=== PATIENT | male | born 1965 | race Caucasian/White ===

== ENCOUNTER 2020-01-31 07:46 | Outpatient (CLI) | payer MEDICARE, MEDICAID, OTHER ==
[2020-02-01 12:27] LABS: SARS-CoV-2 MS2 Positive; SARS-CoV-2 N Gene Negative; SARS-CoV-2 S Gene Negative; SARS-CoV-2 by NAA Not Detected (NotDetected); SARS-CoV-2 orf1ab Negative
== END 2020-01-31 07:47 | disposition home or self-care (01) ==
LOC: LABBT 07:46
PROVIDERS: ATTEND Internal Medicine Gastroenterology
DX: Z01.812 Encounter for preprocedural laboratory examination (principal); Z80.0 Family history of malignant neoplasm of digestive organs; Z20.828 Contact with and (suspected) exposure to other viral communicable diseases
CPT/HCPCS: 87635; U0003

== ENCOUNTER 2020-02-05 09:55 | Day surgery (SDC) | payer MEDICARE, MEDICAID ==
[2020-02-01 09:16] VITALS: BMI 26.6
[2020-02-05] MEDS ORDERED: Lidocaine 1% PF 5 ML VIAL ONE (09:58)
[2020-02-05] MEDS ORDERED: PROPOFOL 200 MG/20 ML VIAL ONE (09:58)
--- NOTE | 2020-02-05 17:25 | OP ---
DATE OF PROCEDURE: 02/05/2020 PROCEDURE PERFORMED: Colonoscopy. PREMEDICATION: Given by Anesthesiology Department. PREPROCEDURE DIAGNOSIS: Family history of colon cancer. POSTPROCEDURE DIAGNOSIS: Normal colon exam. DESCRIPTION OF PROCEDURE: Written consents were obtained prior to procedure. After adequate sedation, the forward-viewing endoscope was advanced through the various segments of the colon to the cecum. The ileocecal valve and appendiceal orifice were visualized, appeared normal. The quality of the bowel prep was good. The cecum, ascending colon, hepatic flexure, transverse colon, splenic flexure, descending colon, and rectosigmoid colon all appeared normal. Retroflexion was normal. The patient tolerated the procedure well. ASSESSMENT: Normal screening colonoscopy. RECOMMENDATION: Repeat colon exam in 5 years if he remains in good health. Job ID: [id number]
== END 2020-02-05 13:00 | disposition short-term general hospital (02) ==
LOC: SDC 09:55
PROVIDERS: ATTEND Internal Medicine Gastroenterology
PROC: 0DJD8ZZ Inspection of Lower Intestinal Tract, Via Natural or Artificial Opening Endoscopic (ICD-10-PCS; principal; 2020-02-05)
DX: Z12.11 Encounter for screening for malignant neoplasm of colon (principal); F79 Unspecified intellectual disabilities; Z80.0 Family history of malignant neoplasm of digestive organs; Z79.83 Long term (current) use of bisphosphonates; Z79.899 Other long term (current) drug therapy; Z88.0 Allergy status to penicillin; Z88.1 Allergy status to other antibiotic agents; Z88.2 Allergy status to sulfonamides; Z88.8 Allergy status to other drugs, medicaments and biological substances
CPT/HCPCS: J2704